=== PATIENT | male | born 1985 | race Caucasian/White ===

== ENCOUNTER 2017-11-12 10:35 | Outpatient (AMBR) | payer MEDICARE, MEDICAID, SELFPAY ==
--- NOTE | 2017-11-12 12:54 | PTNOTE_ITS ---
PT OP Initial Eval Patient Information Visit Reasons: low back pain Medical Diagnosis: M54.6 Treatment Dx #1: Mid Back Pain Start of Care: 11/12/17 Date of Onset: 6 months ago Initial Assessment Subjective Pt is a 32 y/o male c/o chronic mid back pain (12/22) started several months ago. Pt mention that his pain is localized to the mid back and denies of any numbness and tingling down the legs. Pt currently has difficulty with lifting, prolonged sitting, standing, chores, cooking, cleaning, and performing gym activities. Objective T/S AROM: all motions are WFL but pain with end range extension L/S AROM: all motions are WFL but pain with end range extension Posture analysis: left shoulder elevation, left scapula elevation, right trunk sidebend, T/S kyphosis Palpation: hypomobile T7-T9 facets bilaterally, TTP R QL muscle belly Scapula MMTs: grossly 3/5 Hip MMTs: grossly 3/5 Oswestry score: 24% disabled Assessment Pt demonstrate spinal mobility deficits with pain leading to decline function and difficulty with ADLs. Pt will benefit from physical therapy to increase core strength, mobility, and work on functional tasks. Short Term and [employer] Goals 1) Decrease back pain to 2/10 in oswestry score to 10% in 6 wks to be able to walk more than 2 hrs 2) Increase scapula MMTs to 4/5 in 6 wks to be able to perform lifting activities 3) Increase spinal mobility WNL in 6 wks to be able to perform gym activities 4) Indep with HEP Treatment Plan 1) Manual Therapy 2) Therapeutic Activities 3) Therapeutic Exercises 4) Modalities (ice, heat, e-stim) Frequency and Duration 2 x wk for 6 wks Certification Dates: 11/12/17 to 02/12/18 Office Procedures PT Outpatient G-Codes Date of Service PT Date of Service: 11/12/17 G-Codes Walking & Moving Around Mobility Current Status G-Code: G8978: CI 1-20% Mobility Status G-Code: G8979: CH 0% PT Procedures PT Date of Service: 11/12/17 OP PT Eval Mod Complex 30 minutes: Yes
== END 2017-11-12 23:59 ==
PROVIDERS: PCP Physician Assistant; Referring Provider Physician Assistant; Visit Provider Physician Assistant
DX: I10 Essential (primary) hypertension (principal)
CPT/HCPCS: 97162; G8978; G8979

== ENCOUNTER 2017-12-03 11:00 | Outpatient (AMBR) | payer MEDICARE, MEDICAID, SELFPAY ==
--- NOTE | 2017-11-16 12:07 | PTNOTE_ITS ---
PT Outpatient Daily Note Date of Service: November 16, 2017 OP Daily Note Visit Reasons: back pain Outpatient Physical Therapy Treatment Date: 11/16/17 Subjective: Pt mention that his back was feeling better over the weekend. Today his back feels a little weak. Objective: Please see flow chart for list of ther ex performed Assessment: difficulty with wall giuseppe due to tight pec causing arm compensation during the exercise. No increase in back pain after therapy session ; paraspinal seems to have less tone. Plan: Continue with PT Length of Time (minutes) of Treatment: 30 Minutes Office Procedures PT Procedures PT Date of Service: 11/16/17 Therapeutic Exercise 30 minutes: Yes
--- NOTE | 2017-11-19 14:33 | PT.ODAYNRPT ---
PT Outpatient Daily Note Date of Service: November 19, 2017 OP Daily Note Visit Reasons: back pain Outpatient Physical Therapy Treatment Date: 11/19/17 Subjective: pt had no complaints upon visit today. Objective: see flow sheet. Assessment: started with heat in supine in which he was able to tolerate. added new exercises for the mid back in which he did well with. no complaints of discomfort or increased pain. good scap activation during exercises using thera band. noted lordosis when in standing position. 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 gave pt thera band for home. pt overall did well. Plan: continue POC per PT. Length of Time (minutes) of Treatment: 30 Minutes Office Procedures PT Procedures PT Date of Service: 11/19/17 Therapeutic Exercise 30 minutes: Yes PT Procedures PT Date of Service: 11/16/17 Therapeutic Exercise 30 minutes: Yes
--- NOTE | 2017-11-19 14:37 | PTNOTE_ITS ---
PT Outpatient Daily Note Date of Service: November 19, 2017 OP Daily Note Visit Reasons: back pain Outpatient Physical Therapy Treatment Date: 11/19/17 Subjective: pt had no complaints upon visit today. Objective: see flow sheet. Assessment: started with heat in supine in which he was able to tolerate. added new exercises for the mid back in which he did well with. no complaints of discomfort or increased pain. good scap activation during exercises using thera band. noted lordosis when in standing position. 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 gave pt thera band for home. pt overall did well. Plan: continue POC per PT. Length of Time (minutes) of Treatment: 30 Minutes Office Procedures PT Procedures PT Date of Service: 11/19/17 Therapeutic Exercise 30 minutes: Yes PT Procedures PT Date of Service: 11/16/17 Therapeutic Exercise 30 minutes: Yes
--- NOTE | 2017-11-23 14:01 | PT.ODAYNRPT ---
PT Outpatient Daily Note Date of Service: November 23, 2017 OP Daily Note Visit Reasons: back pain Outpatient Physical Therapy Treatment Date: 11/23/17 Subjective: pt did report soreness after last visit. Objective: see flow sheet. Assessment: added more exercises for the mid back. gave pt HEP and thera band and pt understood exercises. answered pt's question about HEP. pt can activate the mid traps well but when in sitting he needs cuing to sit up right. educated pt about proper posture in sitting and standing. advised pt to continue HEP daily. Plan: continue POC per PT. Length of Time (minutes) of Treatment: 30 Minutes Office Procedures PT Procedures PT Date of Service: 11/19/17 Therapeutic Exercise 30 minutes: Yes PT Procedures PT Date of Service: 11/23/17 Therapeutic Exercise 30 minutes: Yes PT Procedures PT Date of Service: 11/16/17 Therapeutic Exercise 30 minutes: Yes
--- NOTE | 2017-11-26 11:28 | PT.ODAYNRPT ---
PT Outpatient Daily Note Date of Service: November 26, 2017 OP Daily Note Visit Reasons: back pain Outpatient Physical Therapy Treatment Date: 11/26/17 Subjective: Pt's back is feeling much better. Pt mention that he's been able to walk longer with less pain. Pt feels that he'll finish up with his last session. Objective: Please see flow chart for list of ther ex performed Assessment: decrease mid back paraspinal muscular tone and less pain allowing him to perform more exercises with less limitation. Plan: Continue with PT Length of Time (minutes) of Treatment: 30 Minutes Office Procedures PT Procedures PT Date of Service: 11/19/17 Therapeutic Exercise 30 minutes: Yes PT Procedures PT Date of Service: 11/23/17 Therapeutic Exercise 30 minutes: Yes PT Procedures PT Date of Service: 11/26/17 Therapeutic Exercise 30 minutes: Yes PT Procedures PT Date of Service: 11/16/17 Therapeutic Exercise 30 minutes: Yes
--- NOTE | 2017-12-03 11:58 | PT.ODS1RPT ---
PT OP Progress/Discharge Note Date of Service: December 03, 2017 Progress Note/DC Note Progress Note/Discharge Note: DC Note Patient Information Visit Reasons: back pain Medical Diagnosis: M54.6 Treatment Dx #1: Back Pain Service Continue Service or Discharge: Discharge Discharge Date: 12/03/17 Status Subjective: Pt mention that his back is feeling much better. Pt has been able to sit and stand longer with less pain. Pt is now walking more than 30 mins without any difficulty. Pt feels comfortable being release from physical therapy with exercises to continue at home. Objective: T/S and T/S AROM: all motions are WNL Scapula MMTs: grossly 3+/5 Hip PROM: all motions are WNL Hip MMTs: grossly 3+/5 Oswestry score: 17% Assessment: Pt demonstrate functional spinal mobility and core strength leading to minimal difficulty with functional tasks. Pt will no longer benefit from physical therapy due to meeting most goals set in therapy as well as completing authorized sessions. Pt was instructed on HEP last session and educated to continue exercises to maintain overall mobility. Pt performed all exercises safely, thank you for your referrals. Plan: D/C home with HEP and follow up with MD Office Procedures PT Outpatient G-Codes Date of Service PT Date of Service: 12/03/17 G-Codes Walking & Moving Around Mobility Status G-Code: G8979: CI 1-20% Mobility DC Status G-Code: G8980: CI 1-20% PT Procedures PT Date of Service: 11/19/17 Therapeutic Exercise 30 minutes: Yes PT Procedures PT Date of Service: 11/23/17 Therapeutic Exercise 30 minutes: Yes PT Procedures PT Date of Service: 11/26/17 Therapeutic Exercise 30 minutes: Yes PT Procedures PT Date of Service: 12/03/17 Therapeutic Exercise 30 minutes: Yes PT Procedures PT Date of Service: 11/16/17 Therapeutic Exercise 30 minutes: Yes
== END 2017-12-12 23:59 ==
PROVIDERS: Family Provider Pediatrics; PCP Physician Assistant; Referring Provider Physician Assistant; Visit Provider Physician Assistant
DX: I10 Essential (primary) hypertension (principal)
CPT/HCPCS: 97110; G8979; G8980